=== PATIENT | female | born 1980 | race Caucasian/White ===

== ENCOUNTER 2016-06-25 14:38 | Outpatient (CLI) | payer OTHER ==
[~2016-06-25] VITALS: Ht 152.4 cm; Wt 93.5 kg
[~2016-06-25 14:38] MED LIST: PREN1TAB62 PO
[2016-06-25] MEDS ORDERED: NOVO7030 SC ×2 (15:42)
[2016-06-25] MEDS ORDERED: LABE100T3 PO (15:42)
[2016-06-25 15:45] LABS: ADD SCAN DIFF NO
[2016-06-25 15:48] VITALS: BP 129/79; PULSE 84; RESP 20
[2016-06-25 15:48] LABS: BASOPHILS % 0.3 % (0.0-2.0); EOSINOPHILS % 0.6 % (0.0-7.0); HEMATOCRIT 37.1 % (37.0-47.0); HEMOGLOBIN 12.3 g/dl (12.0-16.0); LYMPHOCYTES % 27.8 % (15.0-51.0); MEAN CORPUSCULAR HEMOGLOBIN 29.6 pg (29.0-33.0); MEAN CORPUSCULAR HGB CONC 33.2 g/dl (32.0-37.0); MEAN CORPUSCULAR VOLUME 89.4 fl (82.0-101.0); MEAN PLATELET VOLUME 12.8 fl (7.4-10.4); MONOCYTE # 0.3 10^3/ul (0.3-0.9); MONOCYTES % 4.4 % (0.0-11.0); NEUTROPHIL # 4.7 10^3/ul (1.6-7.5); NEUTROPHILS % 66.5 % (39.0-77.0); PLATELET COUNT 220 10^3/UL (140-415); RED BLOOD COUNT 4.15 10^6/ul (4.20-5.40); RED CELL DISTRIBUTION WIDTH 14.7 % (11.5-14.5); WHITE BLOOD COUNT 7.1 10^3/ul (4.8-10.8)
[2016-06-25 16:01] LABS: ALBUMIN 3.2 g/dl (3.3-4.9)
[2016-06-25 16:02] LABS: POTASSIUM 3.8 mmol/L (3.5-5.1)
--- NOTE | 2016-06-25 16:02 | RADRPT ---
PROCEDURE: US OB biophysical profile. CLINICAL INDICATION: evaluation TECHNIQUE: Multiple sonographic images of the pelvis were obtained. The images were reviewed on a PACS workstation. COMPARISON: No prior studies are available for comparison. FINDINGS: There is a single viable intrauterine gestation. Cardiac activity is present with 139 beats per min cade. There is a vertex presentation. The placenta is anterior. There is no evidence of placental abruption. There is an elevated amount of amniotic fluid with an LORIE = 26.6 cm. Biophysical profile: movement 2/2 tone 2/2. breathing 2/2 LORIE 2/2 Total 11/30 RPTAT: AA . IMPRESSION: Normal biophysical profile. Polyhydramnios with an LORIE of 26.6 cm. Physician Uriah Date Time Electronically viewed and signed by Physician Uriah on 06/25/2016 16:02 /
[2016-06-25 16:04] LABS: ALBUMIN/GLOBULIN RATIO 0.71; CREATININE 0.7 mg/dl (0.44-1.00); TOTAL PROTEIN 7.7 g/dl (6.1-8.1)
[2016-06-25 16:05] LABS: CALCIUM 8.9 mg/dl (8.4-10.2)
--- NOTE | 2016-06-25 16:33 | HP ---
Date/Time of Note Date/Time of Note DATE: 06/25/16 TIME: 16:27 OB - History Hx of Present Free Text/Dictation 35yo at 36+4 with cHTN and GDMA2 presenting from ANTC 2/2 elevated BPs (130 /91, 139/92). Pt denies STOCK, visual changes, RUQ pain, UC, VB or LOF. Reports normal FM Pt with elevated BPs of 140/93 at 18wks GA in clinic PROCEDURE: US OB biophysical profile. CLINICAL INDICATION: evaluation TECHNIQUE: Multiple sonographic images of the pelvis were obtained. The images were reviewed on a PACS workstation. COMPARISON: No prior studies are available for comparison. FINDINGS: There is a single viable intrauterine gestation. Cardiac activity is present with 139 beats per minute. There is a vertex presentation. The placenta is anterior. There is no evidence of placental abruption. There is an elevated amount of amniotic fluid with an LORIE = 26.6 cm. Biophysical profile: movement 2/2 tone 2/2. breathing 2/2 LORIE 2/2 Total 11/30 RPTAT: AA . IMPRESSION: Normal biophysical profile. Polyhydramnios with an LORIE of 26.6 cm. Estimated Due Date: Jul 19, 2016 : 3 Para: 2 Care: Good Care Obstetrical Complications: Gestational Diabetes (On insulin) Medical Complications: Cardiovascular (cHTN on Labetolol 100mg BID) OB Admission Exam Vital Signs Vital Signs Vital Signs Date Time Temp Pulse Resp B/P Pulse Ox O2 Delivery O2 Flow Rate FiO2 06/25/16 15:48 98.0 84 20 129/79 Room Air BPs 120s-130s/70-80s Physical Exam Heart Rate: 140's Accelerations: Accelerations Present Decelerations: No Decelerations Varibility: Moderate Contractions on Admission: None Last 72 hours Lab Results CBC & BMP 06/25/16 15:10 OB Assessment/Plan Other Assessment: cHTN with normal BPs and no e/o PreE Elevated ALT c/w documented elevation in records Reassuring FWB Polyhydramnios Other plan: PreE workup notable for AST/ALT 50/47, BPs wnl and pt asymptomatic Plan for d/c home with outpatient follow-up as scheduled Continue PO antihypertensive FKC, PTL and ROM precautions reviewed Questions answered to patient's satisfaction F/up ANTC 06/30/[address] Maloney in clinic on 07/02/16 HELLEN SERRANO MD Jun 25, 2016 16:33
[2016-06-25 17:10] LABS: ADD UMIC YES; URINE BILIRUBIN (Dip) NEGATIVE (NEGATIVE); URINE BLOOD (Dip) NEGATIVE (NEGATIVE); URINE COLOR LT. YELLOW (YELLOW); URINE GLUCOSE (Dip) NEGATIVE (NEGATIVE); URINE KETONES (Dip) NEGATIVE (NEGATIVE); URINE LEUKOCYTE ESTERASE (Dip) 2+ (NEGATIVE); URINE NITRITE (Dip) NEGATIVE (NEGATIVE); URINE TOTAL PROTEIN (Dip) TRACE (NEGATIVE); URINE UROBILINOGEN (Dip) 0.2 E.U./dL (0.1-1.0)
[2016-06-25 17:35] VITALS: Ht 152.4 cm; Wt 93.5 kg
[2016-06-25 17:37] LABS: BACTERIA,URINE MANY; SQUAMOUS EPITHELIAL CELL,UR MANY; URINE RBCS NONE SEEN /HPF (0)
--- NOTE | 2016-06-25 18:13 | TRIAGE ---
OB Triage Datetime Report Generated by CPN: 06/25/2016 18:13 Datetime: 06/25/2016 17:52 Stage of : OB Triage Datetime: 06/25/2016 16:13 Labor Evaluation Frequency: 0 Duration (sec)2399: 0 Heart Rate FHR Baseline Rate: 145 Monitor Mode: External US Variability: Moderate 6-25 bpm Accelerations: 15X15 Decelerations: None Category: Category I Datetime: 06/25/2016 15:34 Labor Evaluation Frequency: 0 Monitor Mode: External Duration (sec)2399: 0 Quality: Mild Resting Tone [place]: Relaxed Contraction Comments: NO UC'S NOTED AT THIS TIME Heart Rate FHR Baseline Rate: 140 Monitor Mode: External US Variability: Moderate 6-25 bpm Accelerations: 15X15 Decelerations: None Category: Category I Comments: NST REACTIVE FOR GESTHATIONAL AGE Datetime: 06/25/2016 15:24 Time of Arrival: 06/25/2016 14:42 EGA: 36.4 Arrived By: Ambulatory Arrived From: [facility] Chief Complaint: R/O PIH Movement: Present Contractions: Denies/Absent Rupture of Membranes: Denies Vaginal Bleeding: None Vaginal Discharge: Denies Recent Sexual Intercouse: Denies Abdominal Trauma: Not Applicable Patient Complaints: None Provider Notified: DR. VANCE Initial Plan: SVE, BPP, UA, CBC, CMP, URIC ACID Datetime: 06/22/2016 13:59 Comments: loss of contact with U/S, pt changed positions.
== END 2016-06-25 17:52 | disposition home or self-care (01) ==
LOC: OBT 14:38 → L-D 14:39 → OBT 17:52
PROVIDERS: ATTEND Obstetrics & Gynecology
DX: O10.013 Pre-existing essential hypertension complicating pregnancy, third trimester (principal); O24.414 Gestational diabetes mellitus in pregnancy, insulin controlled; O40.3XX0 Polyhydramnios, third trimester, not applicable or unspecified; Z3A.36 36 weeks gestation of pregnancy
CPT/HCPCS: 36415; 76818; 80053; 81001; 84560; 85025; Z7500; 81003; G0463

== ENCOUNTER 2016-07-08 17:55 | Inpatient (IN) | payer OTHER ==
[~2016-07-08] VITALS: Ht 152.4 cm; Wt 94.5 kg
[~2016-07-08 17:55] MED LIST changes: +LABE100T3 PO; +NOVO7030 SC; +OXYTOCIN 30 UNITS/LR 500 ML BAG IV ONE
[2016-07-08] MEDS ORDERED: LABE100T3 PO (18:40)
[2016-07-08] MEDS ORDERED: NPH,100I5 SQ ×2 (18:40)
[2016-07-08] MEDS ORDERED: PRENAT PO (18:40)
[2016-07-08] MEDS ORDERED: INSU100C SQ ×2 (18:40)
[2016-07-08 18:42] VITALS: Ht 152.4 cm; Wt 94.5 kg
[2016-07-08 18:45] VITALS: BP 140/83; PULSE 72; RESP 18
[2016-07-08 18:59] LABS: ADD SCAN DIFF NO
[2016-07-08] MEDS ORDERED: CARBOPROST 250 MCG INJ IM PRN (19:00)
[2016-07-08] MEDS ORDERED: METHYLERGONOVINE 0.2 MG INJ IM PRN (19:00)
[2016-07-08] MEDS ORDERED: MISOPROSTOL 200 MCG TAB PR PRN (19:00)
[2016-07-08] MEDS ORDERED: CLINDAMYCIN 900 MG/D5W (PMX) 50 ML IV SCH (19:00)
[2016-07-08] MEDS ORDERED: OXYTOCIN 30 UNITS/LR 500 ML IV SCH (19:00)
[2016-07-08] MEDS ORDERED: OXYTOCIN 30 UNITS/LR 500 ML IV PRN (19:00)
[2016-07-08 19:03] LABS: BASOPHILS % 0.4 % (0.0-2.0); EOSINOPHILS # 0.1 10^3/ul (0.0-0.5); EOSINOPHILS % 0.9 % (0.0-7.0); HEMATOCRIT 38.2 % (37.0-47.0); HEMOGLOBIN 12.6 g/dl (12.0-16.0); LYMPHOCYTES # 2.2 10^3/ul (0.8-2.9); LYMPHOCYTES % 28.5 % (15.0-51.0); MEAN CORPUSCULAR HEMOGLOBIN 29.6 pg (29.0-33.0); MEAN CORPUSCULAR VOLUME 89.7 fl (82.0-101.0); MEAN PLATELET VOLUME 13.3 fl (7.4-10.4); MONOCYTE # 0.3 10^3/ul (0.3-0.9); MONOCYTES % 4.4 % (0.0-11.0); NEUTROPHIL # 5.1 10^3/ul (1.6-7.5); NEUTROPHILS % 65.4 % (39.0-77.0); PLATELET COUNT 221 10^3/UL (140-415); RED BLOOD COUNT 4.26 10^6/ul (4.20-5.40); RED CELL DISTRIBUTION WIDTH 15.6 % (11.5-14.5); WHITE BLOOD COUNT 7.8 10^3/ul (4.8-10.8)
[2016-07-08 19:06] LABS: INR 0.92; PROTIME 12.4 Sec (12.2-14.2)
[2016-07-08 19:07] LABS: PARTIAL THROMBOPLASTIN TIME 28.1 Sec (25.0-35.0)
[2016-07-08] MEDS ORDERED: GENTAMICIN IVPB SCH (19:30)
[2016-07-08] MEDS ORDERED: SOD CHLORIDE 0.9% IVPB SCH (19:30)
[2016-07-08] MEDS: LACTATED RINGER'S 1,000 ML IV SCH ×3 (20:21→23:03)
[2016-07-08 20:32] LABS: ALBUMIN 3.5 g/dl (3.3-4.9)
[2016-07-08 20:33] LABS: POTASSIUM 4.4 mmol/L (3.5-5.1)
[2016-07-08 20:35] LABS: CREATININE 0.75 mg/dl (0.44-1.00)
[2016-07-08 20:36] LABS: ALBUMIN/GLOBULIN RATIO 0.85; TOTAL PROTEIN 7.6 g/dl (6.1-8.1)
[2016-07-08 21:20] LABS: ADD UMIC YES; URINE BILIRUBIN (Dip) NEGATIVE (NEGATIVE); URINE BLOOD (Dip) NEGATIVE (NEGATIVE); URINE COLOR LT. YELLOW (YELLOW); URINE GLUCOSE (Dip) NEGATIVE (NEGATIVE); URINE KETONES (Dip) TRACE (NEGATIVE); URINE LEUKOCYTE ESTERASE (Dip) TRACE (NEGATIVE); URINE NITRITE (Dip) NEGATIVE (NEGATIVE); URINE TOTAL PROTEIN (Dip) 1+ (NEGATIVE); URINE UROBILINOGEN (Dip) 0.2 E.U./dL (0.1-1.0)
[2016-07-08] MEDS ORDERED: GENTAMICIN 120 MG/NS (PMX) 100 ML IVPB SCH (21:34)
[2016-07-08 21:58] LABS: BACTERIA,URINE FEW; SQUAMOUS EPITHELIAL CELL,UR FEW; URINE RBCS NONE SEEN /HPF (0)
[2016-07-08] MEDS ORDERED: PHENYLephrine (100 MCG/ML) 5ML SYG ONE (23:42)
[2016-07-08] MEDS ORDERED: morphine SULFATE/PF (10 MG/10 ML) INJ ONE (23:42)
[2016-07-08] MEDS ORDERED: OXYTOCIN 10 UNIT INJ ONE ×2 (23:42)
[2016-07-08] MEDS ORDERED: ONDANSETRON 4 MG INJ ONE (23:42)
--- NOTE | 2016-07-08 23:49 | PREOPHP ---
DATE OF ADMISSION: 07/08/2016 HISTORY OF PRESENT ILLNESS: Ms. Soraya Peraza is a 35-year-old 3, para 2, EDC 07/14/2016, intrauterine at 38 weeks and 3 days' gestational age, was sent in from clinic today for mj hedrick. In the clinic, her blood pressure was 149/100. The patient has a current history of GDM A 2 and polyhydramnios with elevated liver enzymes. After discussion with the perinatologist today, Mj Bennett recommended delivery. After discussing the risks, benefits and alternatives with samantha geronimo, the patient desires an elective delivery. The patient is currently having regular contr actions. She denies any vaginal bleeding or discharge. Her care took place at [facility]. MEDICAL HISTORY: Chronic hypertension, GDM A2. MEDICATIONS: 1. vitamins. 2. Labetalol. 3. Insulin regimen. OBSTETRIC HISTORY: Vaginal deliveries x2. GYNECOLOGIC HISTORY: Twelve, regular, 3 to 4 days. Denies any sexually transmitted disease. Sexua lly active with 1 partner. SOCIAL HISTORY: Denies any smoking, drugs or alcohol. FAMILY HISTORY: None. PHYSICAL EXAMINATION: HEENT: Within normal. LUNGS: CTA bilateral. CARDIOVASCULAR: S1, S2. Regular rhythm. ABDOMEN: Gravid, nontender. Negative CVA bilateral. EXTREMITIES: Negative edema. No calf tenderness. PELVIC: Vaginal exam: 3, 80, -3. heart tracing category 1. [place]: Regular contractions. ASSESSMENT: 1. A 35-year-old 3, para 2, intrauterine at 38 weeks and 3 days gestational age. 2. Chronic hypertension. 3. Gestational diabetes mellitus A2. 4. Polyhydramnios. 5. In labor, desires elective delivery. PLAN: Consent for primary . Risks, benefits and alternatives explained. All questions we re answered. Dictated By: ALICJA CANADA/LANI Conf#: [id number] DID#: [id number]
[2016-07-09] VITALS (7 sets, daily range): BP systolic 132–162; BP diastolic 80–95; PULSE 69–85; RESP 18–20
[2016-07-09] MEDS ORDERED: LANOLIN 7 GM TUBE TOP PRN ×2 (01:00→20:00)
[2016-07-09] MEDS ORDERED: CARBOPROST 250 MCG INJ IM PRN ×2 (01:00→20:00)
[2016-07-09] MEDS ORDERED: MISOPROSTOL 200 MCG TAB PR PRN ×2 (01:00→20:00)
[2016-07-09] MEDS ORDERED: OXYCODONE/ACETAMINOPHEN (5/325) TAB PO PRN ×2 (01:00)
[2016-07-09] MEDS ORDERED: OXYTOCIN 30 UNITS/LR 500 ML IV PRN ×2 (01:00→20:00)
[2016-07-09] MEDS ORDERED: ONDANSETRON 4 MG INJ IV PRN (01:30)
[2016-07-09] MEDS ORDERED: OXYTOCIN 30 UNITS/LR 500 ML IVPB ONE (01:30)
[2016-07-09] MEDS ORDERED: DIPHENHYDRAMINE 50 MG INJ IV PRN (01:30)
[2016-07-09] MEDS ORDERED: morphine 2 MG INJ IV PRN (01:30)
[2016-07-09] MEDS ORDERED: NALOXONE (0.4 MG/ML) INJ IV PRN (01:30)
[2016-07-09] MEDS: CLINDAMYCIN 900 MG/D5W (PMX) 50 ML IV SCH ×3 (01:33→16:27)
[2016-07-09] MEDS: OXYTOCIN 30 UNITS/LR 500 ML IV SCH ×5 (01:40→17:30)
[2016-07-09] MEDS: KETOROLAC 30 MG INJ IV PRN ×3 (02:50→22:38)
[2016-07-09] MEDS: LACTATED RINGER'S 1,000 ML IV SCH ×3 (05:01→16:25)
[2016-07-09] MEDS: ACCU-CHEK XX SCH ×3 (07:30→13:50)
[2016-07-09] MEDS ORDERED: ENOXAPARIN 40 MG/0.4 ML SYG SC SCH (09:00)
[2016-07-09] MEDS ORDERED: SENNA/DOCUSATE NA (8.6MG/50MG) TAB PO SCH (09:00)
[2016-07-09] MEDS ORDERED: LABETALOL 100 MG TAB NGT SCH (09:00)
--- NOTE | 2016-07-09 09:50 | OPR ---
DATE OF OPERATION: 07/09/2016 PRIMARY DIAGNOSIS: A 35-year-old 3, para 2, intrauterine at 38+ weeks gestational age, chronic hypertension, gestational diabetes mellitus A2, elevated liver enzymes, polyhydramnios and labor, desires elective delivery, maternal request. POSTOPERATIVE DIAGNOSIS: A 35-year-old 3, para 2, intrauterine at 38+ weeks gesta tional age, chronic hypertension, gestational diabetes mellitus A2, elevated liver enzymes, polyhydr amnios and labor, desires elective delivery, maternal request. PROCEDURE PERFORMED: Primary low transverse delivery. SURGEON: Ash Pratt MD ELECTRONIC PUBLISHER: Chi Pang MD FINDINGS: A viable female, 8 and 8 respectively at 1 and 5 minutes, weight 8 pounds 7 ounces. ESTIMATED BLOOD LOSS: 500 mL. SPECIMEN: None. COMPLICATIONS OF PROCEDURE: None. TYPE OF ANESTHESIA: Spinal. DESCRIPTION OF PROCEDURE: After explaining the risks, benefits and alternatives, the patient consen t signed in chart. The patient was taken to the operating room where spinal anesthesia was found to be adequate. She was then prepared and draped in normal sterile fashion in dorsal supine position with a leftward tilt. A Pfannenstiel skin incision was then made with a scalpel and carried through the underlying layer of the fascia. The fascia was incised in the midline and the incision was ext ended laterally with Ladd scissors. The superior aspect of the fascial incision was grasped with cu rved clamps, elevated and the underlying rectus muscles dissected off bluntly. Attention was then t urned to the inferior aspect of the incision which in a similar fashion was grasped, tented up with curved clamps and the rectus muscles dissected off bluntly. The rectus muscles were in mi dline, peritoneum identified, tented up and entered sharply with Metzenbaum scissors. The peritonea l incision was extended superiorly and inferiorly with good visualization of the bladder. The bladd er blade was then inserted and the vesicouterine peritoneum identified, grasped with pickups and ent ered sharply with Metzenbaum scissors. This incision was extended laterally and the bladder flap cr eated digitally. The bladder blade was then reinserted and the lower segment incised in a transvers e fashion with a scalpel. The uterine incision was extended laterally. The bladder blade was remov ed and the infant's head delivered atraumatically. The nose and mouth were suctioned and cord clamp ed and cut. The was handed off to awaiting electrolytic etcher. The placenta was then removed. Th e uterus exteriorized, cleared of all clots and debris. The uterine incision was repaired with 1-0 chromic in a running locked fashion. A second layer of the same suture was used for imbrication obt aining excellent hemostasis. The uterus was returned to the abdomen. The gutters were cleared of a ll clots. The peritoneum and rectus abdominis muscles were reapproximated with 3-0 Vicryl in an int errupted fashion. The subcutaneous tissue was reapproximated with 2-0 plain gut in a running fashio n. The skin was closed with wei. The patient tolerated the procedure well. Sponge, lap and ne edle counts correct x2. The patient was taken to recovery room in stable condition. Dictated By: ASH CANADA/LANI Conf#: [id number] DID#: [id number]
[2016-07-09] MEDS ORDERED: LACTATED RINGER'S 1,000 ML IV* SCH (19:45)
[2016-07-09] MEDS ORDERED: SENNA/DOCUSATE NA (8.6MG/50MG) TAB PO PRN (20:00)
[2016-07-09] MEDS ORDERED: METHYLERGONOVINE 0.2 MG INJ IM PRN (20:00)
[2016-07-09] MEDS ORDERED: BENZOCAINE 20% 56 ML SPRAY TOP PRN (20:00)
[2016-07-09] MEDS ORDERED: WITCH HAZEL/GLYCERIN PAD PR PRN (20:00)
[2016-07-09] MEDS: SENNA/DOCUSATE NA (8.6MG/50MG) TAB PO SCH (21:11)
[2016-07-09] MEDS: IBUPROFEN 600 MG TAB PO SCH (23:33)
[2016-07-10] VITALS (7 sets, daily range): BP systolic 115–172; BP diastolic 71–92; PULSE 76–92; RESP 17–82
[2016-07-10] MEDS ORDERED: IBUPROFEN 600 MG TAB PO SCH
[2016-07-10] MEDS: OXYCODONE/ACETAMINOPHEN (5/325) TAB PO PRN ×4 (04:21→21:06)
[2016-07-10] MEDS: ACCU-CHEK XX SCH ×4 (06:00→21:30)
[2016-07-10] MEDS: IBUPROFEN 600 MG TAB PO SCH ×4 (06:12→23:40)
[2016-07-10 07:40] LABS: ADD SCAN DIFF NO
[2016-07-10 07:42] LABS: BASOPHILS % 0.1 % (0.0-2.0); EOSINOPHILS % 0.4 % (0.0-7.0); HEMATOCRIT 35.4 % (37.0-47.0); HEMOGLOBIN 11.4 g/dl (12.0-16.0); LYMPHOCYTES # 1.3 10^3/ul (0.8-2.9); MEAN CORPUSCULAR HEMOGLOBIN 28.9 pg (29.0-33.0); MEAN CORPUSCULAR HGB CONC 32.2 g/dl (32.0-37.0); MEAN CORPUSCULAR VOLUME 89.8 fl (82.0-101.0); MEAN PLATELET VOLUME 13.3 fl (7.4-10.4); MONOCYTE # 0.5 10^3/ul (0.3-0.9); MONOCYTES % 4.9 % (0.0-11.0); NEUTROPHIL # 8.5 10^3/ul (1.6-7.5); NEUTROPHILS % 82.2 % (39.0-77.0); PLATELET COUNT 193 10^3/UL (140-415); RED BLOOD COUNT 3.94 10^6/ul (4.20-5.40); RED CELL DISTRIBUTION WIDTH 15.9 % (11.5-14.5); WHITE BLOOD COUNT 10.4 10^3/ul (4.8-10.8)
[2016-07-10] MEDS: LABETALOL 100 MG TAB PO SCH ×2 (08:55→21:07)
[2016-07-10] MEDS: SENNA/DOCUSATE NA (8.6MG/50MG) TAB PO SCH ×2 (08:56→21:07)
[2016-07-10] MEDS: ENOXAPARIN 40 MG/0.4 ML SYG SC SCH (08:58)
[2016-07-10] MEDS ORDERED: INSULIN ASPART [NOVOLOG] 3 ML PEN SC ONE (15:30)
--- NOTE | 2016-07-10 17:49 | QN ---
Documentation Comment PPD #1 s/p primary c/s. Feels fine. Tolerating a regular diet. Adequate pain control although the right side hurts more than the left. T= 98.8 BP 119/71 Dressing C/D/I. Lochia minimal. Ext NT, 1+ edema. WBC 10.4. Hgb 11.4 P: Continue care. SAADIA ISLAS MD Jul 10, 2016 17:49
[2016-07-11 03:30] VITALS: BP 127/81; PULSE 81; RESP 19
[2016-07-11] MEDS: IBUPROFEN 600 MG TAB PO SCH ×4 (05:37→23:34)
[2016-07-11] MEDS: OXYCODONE/ACETAMINOPHEN (5/325) TAB PO PRN ×3 (05:38→13:48)
[2016-07-11 08:17] VITALS: BP 133/80; PULSE 72; RESP 18
[2016-07-11] MEDS: LABETALOL 100 MG TAB PO SCH ×2 (08:31→20:54)
[2016-07-11] MEDS: SENNA/DOCUSATE NA (8.6MG/50MG) TAB PO SCH ×2 (08:32→20:54)
[2016-07-11] MEDS: ENOXAPARIN 40 MG/0.4 ML SYG SC SCH (08:43)
--- NOTE | 2016-07-11 11:50 | QN ---
Documentation Comment POD #2 s/p primary c/s. Feeling better today with better pain control and decreased pain. T= 98.5 BP 133/80 Fundus firm. Incision clean, dry and intact. Tawny present. Pt is obese. Lochia minimal. Ext 2+ edema. P: continue care. Probable d/c tomorrow. SAADIA ISLAS MD Jul 11, 2016 11:50
[2016-07-11 16:40] VITALS: BP 129/80; PULSE 73; RESP 18
[2016-07-11 19:45] VITALS: BP 142/89; PULSE 78; RESP 20
[2016-07-11] MEDS: ACCU-CHEK XX SCH ×2 (20:53→21:30)
[2016-07-11 20:54] VITALS: BP 131/80; PULSE 74
[2016-07-12] MEDS: OXYCODONE/ACETAMINOPHEN (5/325) TAB PO PRN ×2 (03:18→20:08)
[2016-07-12 03:45] VITALS: BP 137/92; PULSE 82; RESP 20
[2016-07-12] MEDS: IBUPROFEN 600 MG TAB PO SCH ×3 (06:09→18:58)
[2016-07-12 07:46] VITALS: BP 106/63; PULSE 79; RESP 18
[2016-07-12 08:00] VITALS: BP 119/74; PULSE 77; RESP 18
[2016-07-12] MEDS: ACCU-CHEK XX SCH ×2 (08:32→13:17)
[2016-07-12] MEDS: SENNA/DOCUSATE NA (8.6MG/50MG) TAB PO SCH ×2 (08:51→22:57)
[2016-07-12] MEDS: LABETALOL 100 MG TAB PO SCH ×2 (08:51→22:58)
[2016-07-12] MEDS: ENOXAPARIN 40 MG/0.4 ML SYG SC SCH (08:53)
[2016-07-12] MEDS ORDERED: INFLUENZA VIRUS VACCINE 0.5 ML SYG IM* ONE ×2 (09:00→12:00)
--- NOTE | 2016-07-12 12:41 | PD.PPDC ---
RN ACLS Discharge Instruction Condition Patient Condition: Good Diet Diet: Resume Regular Diet Activity/Restrictions Restrictions: No Lifting No Driving No Sexual Activity Nothing in the Vagina No [place] No Tampons, douche Follow-up Follow-up with Physician: 3, Day/Days Provider Information: follow office this thurs to remove wei Return to clinic for INSURANCE ADJUSTER Instructions: Fever greater than 101 [place]ills Worsening abdominal pain Excessive Vaginal Bleeding More than 2 pads per hour Unable to tolerate diet OB Instructions: Breast Tenderness Depression Blurried Vision Headache Surgical Instructions: Incisional Drainage Incisional Redness ALICJA SPARKS MD Jul 12, 2016 12:41
--- NOTE | 2016-07-12 12:43 | PD.PPDC ---
LOCOMOTIVE ENGINEER Discharge Instruction Condition Patient Condition: Good Diet Diet: Resume Regular Diet Activity/Restrictions Restrictions: No Lifting No Driving No Sexual Activity Nothing in the Vagina No [place] No Tampons, douche Follow-up Follow-up with Physician: 3, Day/Days Referral Agency Name and Phone Number: internal medicine Comment: follow up with internal medicine to evaluate for diabetes Return to clinic for MINE INSPECTOR Instructions: Fever greater than 101 [place]ills Worsening abdominal pain Excessive Vaginal Bleeding More than 2 pads per hour Unable to tolerate diet OB Instructions: Breast Tenderness Depression Blurried Vision Headache Surgical Instructions: Incisional Drainage Incisional Redness ALICJA SPARKS MD Jul 12, 2016 12:43
[2016-07-12 14:59] VITALS: BP 111/63; PULSE 81; RESP 18
[2016-07-12 20:08] VITALS: BP 140/86; RESP 18
[2016-07-13] MEDS: IBUPROFEN 600 MG TAB PO SCH ×3 (00:13→13:14)
[2016-07-13 04:00] VITALS: BP 130/87; PULSE 79; RESP 18
[2016-07-13 07:50] VITALS: BP 128/60; PULSE 75; RESP 20
--- NOTE | 2016-07-13 08:05 | DS ---
DATE OF ADMISSION: 07/08/2016 DATE OF DISCHARGE: 07/13/2016 PRIMARY DIAGNOSES: 1. A 35-year-old 3, para 2, intrauterine at 38+ weeks gestational age. 2. Chronic hypertension. 3. Gestational diabetes A2. 4. Elevated liver enzymes. 5. Polyhydramnios. 6. In labor and desires elective delivery, maternal request. PROCEDURE: Primary low transverse delivery. CONDITION ON DISCHARGE: Stable. ACTIVITY: None per vagina, no heavy lifting x6 weeks. DIET: Regular. MEDICATIONS ON DISCHARGE 1. Motrin. 2. Percocet. DISCHARGE SUMMARY: Ms. Soraya Peraza is a 35-year-old 3, para 3, status post primary low transverse delivery on 07/09/2016. She had a viable female, 8 and 8 respectively at 1 and 5 minutes, weight 8 pounds 7 ounces. She had an uneventful postop day 1, 2, and 3. She will be discharged on postop day 4. Her incision is clean, dry, and intact. She is ambulating, tolerati ng diet, positive flatulence, and positive bowel movement. The patient was advised to follow up [facility] internal medicine for followup on history of GDM A2 and also she will follow up in the office this to remove her wei. Dictated By: ALICJA CANADA/LANI Conf#: [id number] DID#: [id number]
[2016-07-13] MEDS: ACCU-CHEK XX SCH (08:32)
[2016-07-13] MEDS: SENNA/DOCUSATE NA (8.6MG/50MG) TAB PO SCH (09:00)
[2016-07-13] MEDS: LABETALOL 100 MG TAB PO SCH (09:15)
[2016-07-13] MEDS: ENOXAPARIN 40 MG/0.4 ML SYG SC SCH (09:20)
== END 2016-07-13 15:10 | disposition home or self-care (01) | DRG 765 ==
LOC: L-D 17:55 → PP1 07-09 03:59 → EDSTATUS 07-19 17:55
PROVIDERS: ADMIT Obstetrics & Gynecology; ATTEND Obstetrics & Gynecology
PROC: 10D00Z1 Extraction of Products of Conception, Low, Open Approach (ICD-10-PCS; principal; 2016-07-09)
DX: O10.92 Unspecified pre-existing hypertension complicating childbirth (principal); O40.3XX0 Polyhydramnios, third trimester, not applicable or unspecified; Z3A.38 38 weeks gestation of pregnancy; Z37.0 Single live birth; O24.429 Gestational diabetes mellitus in childbirth, unspecified control; R94.5 Abnormal results of liver function studies; O75.89 Other specified complications of labor and delivery
CPT/HCPCS: 80053; 81001; 81003; 82947; 82962; 85025; 85610; 85730; 86592; 86850; 86900; 86901; 90686; 99464; J1580; J1650; J1815; J1885; J2274; J2370; J2405; J2590; J7120